=== PATIENT | female | born 1960 | race Caucasian/White ===

== ENCOUNTER 2017-06-08 10:38 | Emergency (ER) | payer BC ==
[~2017-06-08] VITALS: Ht 165.1 cm; Wt 78.9 kg
[2017-06-08 10:49] VITALS: Ht 165.1 cm; Wt 78.9 kg
[2017-06-08 13:24] VITALS: BP 120/87
== END 2017-06-08 13:24 | disposition home or self-care (01) ==
LOC: ED 10:38
DX: S06.0X0A Concussion without loss of consciousness, initial encounter (principal); S30.0XXA Contusion of lower back and pelvis, initial encounter; K58.9 Irritable bowel syndrome, unspecified; V80.010A Animal-rider injured by fall from or being thrown from horse in noncollision accident, initial encounter; Y93.52 Activity, horseback riding; Y99.8 Other external cause status; Y92.89 Other specified places as the place of occurrence of the external cause
CPT/HCPCS: Q0162